=== PATIENT | female | born 1960 | race Caucasian/White ===

== ENCOUNTER → 2016-06-06 | Outpatient (REF) | payer BC ==
[2016-06-06 12:20] LABS: BLOOD UREA NITROGEN 19 MG/DL (7-18); CREATININE FOR GFR 0.95 MG/DL (0.55-1.02); GLOMERULAR FILTRATION RATE > 60.0 (>51)
== END ==
LOC: M LABDRAW1 11:27
PROVIDERS: ATTEND Physician Assistant
DX: M54.5 Low back pain (principal); M25.531 Pain in right wrist

== ENCOUNTER → 2016-07-28 | Outpatient (REF) | payer BC ==
[2016-07-28 14:18] LABS: PERCENT SATURATION 16.7 % (13.2-37.4)
== END ==
LOC: M LAB REF 13:33
PROVIDERS: ATTEND Internal Medicine
DX: D64.9 Anemia, unspecified (principal)

== ENCOUNTER 2017-03-29 08:19 | Outpatient (RCR) | payer OTHER | END 2017-04-12 | LOC: M PT 08:19 | DX: Z51.89 Encounter for other specified aftercare (principal); M51.36 Other intervertebral disc degeneration, lumbar region; M54.32 Sciatica, left side ==

== ENCOUNTER 2017-04-13 08:42 | Outpatient (RCR) | payer OTHER | END 2017-05-10 | LOC: M PT 04-17 07:45 | DX: Z51.89 Encounter for other specified aftercare (principal); M51.36 Other intervertebral disc degeneration, lumbar region; M54.32 Sciatica, left side | CPT/HCPCS: 97010 ==

== ENCOUNTER → 2017-04-27 | Outpatient (REF) | payer BC | LOC: M LAB REF 16:43 | DX: R31.9 Hematuria, unspecified (principal) | CPT/HCPCS: 87186 ==

== ENCOUNTER → 2017-05-17 | Outpatient (REF) | payer BC ==
[2017-05-17 15:06] LABS: INFLUENZA A AMPLIFICATION NEGATIVE (NEGATIVE); INFLUENZA B AMPLIFICATION POSITIVE (NEGATIVE)
== END ==
LOC: M LAB REF 14:02
DX: R05 Cough (principal)
CPT/HCPCS: 87502

== ENCOUNTER 2017-06-05 11:51 | Outpatient (RCR) | payer OTHER | END 2017-06-10 | LOC: M PT 11:51 | DX: Z51.89 Encounter for other specified aftercare (principal); M51.36 Other intervertebral disc degeneration, lumbar region; M54.32 Sciatica, left side ==

== ENCOUNTER 2017-06-12 06:59 | Outpatient (RCR) | payer OTHER | END 2017-07-10 | LOC: M PT 06:59 | DX: Z51.89 Encounter for other specified aftercare (principal); M51.36 Other intervertebral disc degeneration, lumbar region; M54.32 Sciatica, left side | CPT/HCPCS: 97010 ==

== ENCOUNTER 2017-06-29 13:48 | Emergency (ER) | payer BC, OTHER, SELFPAY ==
[2017-06-29] MEDS: ALBUTEROL SULFATE 2.5 MG/0.5 ML INH NEB SOLN NEB (14:49)
[2017-06-29] MEDS: IPRATROPIUM 0.5MG/ALBUTEROL 2.5MG INH SOL UD 3ML (DUONEB)(J7620) NEB (14:50)
[2017-06-29] MEDS: predniSONE 20 MG TAB PO (15:50)
== END 2017-06-29 15:54 | disposition home or self-care (01) ==
LOC: M ED 13:48
DX: J45.901 Unspecified asthma with (acute) exacerbation (principal); I10 Essential (primary) hypertension; Z79.899 Other long term (current) drug therapy; Z88.0 Allergy status to penicillin; Z88.1 Allergy status to other antibiotic agents; Z88.8 Allergy status to other drugs, medicaments and biological substances
CPT/HCPCS: 71046

== ENCOUNTER → 2018-01-26 | Outpatient (CLI) | payer BC | LOC: M RAD 07:17 | DX: K76.0 Fatty (change of) liver, not elsewhere classified (principal); N28.1 Cyst of kidney, acquired; K21.9 Gastro-esophageal reflux disease without esophagitis; R10.13 Epigastric pain | CPT/HCPCS: 76705 ==

== ENCOUNTER 2018-06-05 10:53 | Emergency (ER) | payer BC ==
[~2018-06-05] VITALS: Ht 162.6 cm; Wt 105.6 kg
[~2018-06-05 10:53] MED LIST: ALBU83IN INH; CITA20TA6; IPRA0.00 IN; MONT10TA2; PRED10TA2 PO; PRED20TA; VALS1TAB49
[2018-06-05] MEDS ORDERED: FLOV250A2 (11:02)
[2018-06-05] MEDS ORDERED: MOME50SP2 (11:02)
[2018-06-05] MEDS ORDERED: methylPREDNISolone INJ 125 MG/2 ML VIAL (J2930) IV ONE (12:30)
[2018-06-05] MEDS ORDERED: NS 500 ML IV ONE (12:30)
[2018-06-05] MEDS: IPRATROPIUM 0.5MG/ALBUTEROL 2.5MG INH SOL UD 3ML (DUONEB)(J7620) NEB PRN ×2 (12:33→13:14)
--- NOTE | 2018-06-05 12:43 | REP ---
Chest x-ray: Two views. History: Dyspnea and cough . Comparison study: June 29, 2017 . Findings: The lungs are well inflated and free of infiltrate. The pleural angles are sharp. The heart size is normal. Pulmonary vasculature is not increased. No significant bony abnormality is seen. Impression: Negative chest x-ray. Electronically Signed by Vinicio Brenner MD 06/05/2018 12:34 P
[2018-06-05 12:58] LABS: VENOUS BASE EXCESS 2.3 (-2.0-2.0); VENOUS HCO3 28.7 MEQ/L (23.0-27.0); VENOUS O2 SATURATION 64.9 % (60.0-80.0); VENOUS PARTIAL PRESSURE CO2 51.9 mmHg (38.0-50.0); VENOUS PARTIAL PRESSURE O2 36.8 mmHg (30.0-50.0); VENOUS PH 7.361 UNITS (7.330-7.430); VENOUS STANDARD HCO3 25.6 MEQ/L; VENOUS TOTAL CO2 30.3 MEQ/L (24.0-28.0)
[2018-06-05 13:04] LABS: HEMATOCRIT 43.4 % (36.0-47.0); HEMOGLOBIN 14.4 g/dl (12.0-15.5); MEAN CORPUSCULAR HEMOGLOBIN 30.1 pg (27.0-33.0); MEAN CORPUSCULAR HGB CONC 33.2 g/dl (32.0-36.5); MEAN CORPUSCULAR VOLUME 90.8 fl (80.0-96.0); NEUTROPHILS % 68.9 % (36.0-66.0); PLATELET COUNT, AUTOMATED 329 10^3/uL (150-450); RED BLOOD COUNT 4.78 10^6/uL (4.00-5.40); WHITE BLOOD COUNT 9.9 10^3/uL (4.0-10.0)
[2018-06-05 13:05] LABS: BASO # 0.1 10^3/uL (0.0-0.2); BASO % 0.6 % (0.0-1.0); EOS # 0.1 10^3/uL (0.0-0.50); EOS % 0.7 % (0.0-3.0); LYMPH # 2.2 10^3/uL (1.5-4.5); LYMPH % 22.5 % (24.0-44.0); MONO # 0.7 10^3/uL (0.0-0.8); MONO % 6.6 % (0.0-5.0); NEUTROPHILS # 6.8 10^3/uL (1.8-7.7)
[2018-06-05 13:15] LABS: CALCIUM LEVEL 9.4 MG/DL (8.5-10.1); CREATININE FOR GFR 1.02 MG/DL (0.55-1.30); GLOMERULAR FILTRATION RATE 59.7 (>51); INR 0.93; POTASSIUM SERUM 3.5 MEQ/L (3.5-5.1); PROTHROMBIN TIME 12.6 SECONDS (12.1-14.4)
[2018-06-05 13:17] LABS: D-DIMER QUANT 833.28 ng/ml (<500)
[2018-06-05 13:27] LABS: INFLUENZA A AMPLIFICATION NEGATIVE (NEGATIVE); INFLUENZA B AMPLIFICATION NEGATIVE (NEGATIVE)
[2018-06-05] MEDS ORDERED: ISOVUE-370 76% 125ML VIAL (Q9967 PER ML) As Ordered ONE (13:38)
--- NOTE | 2018-06-05 14:20 | REP ---
Clinical: Acute chest pain and shortness of breath . Technique: Axial contrast enhanced images from the thoracic inlet to the upper abdomen using 100 ml Isovue 370 intravenous contrast material with coronal and sagittal re-formations. Findings: Satisfactory enhancement of the pulmonary vasculature is achieved and no filling defects are identified to suggest pulmonary embolus. Thoracic aorta is normal caliber without aneurysm or dissection. Heart and pericardium are normal. Bilateral lung betancur are well aerated and clear without acute pulmonary parenchymal consolidation or atelectasis. No nodule or mass lesion. No pleural effusion/reaction. No pneumothorax. No adenopathy. Moderate hiatal hernia at the gastroesophageal junction noted. Impression: No evidence for pulmonary embolus. No acute pleuroparenchymal or mediastinal process. Moderate hiatal hernia. Electronically Signed by Faustino Etienne MD 06/05/2018 02:12 P
[2018-06-05] MEDS ORDERED: PRED20TA PO (14:38)
[2018-06-05 14:42] VITALS: BP 135/85
== END 2018-06-05 14:50 | disposition home or self-care (01) ==
LOC: M ED 10:53
DX: J45.901 Unspecified asthma with (acute) exacerbation (principal); K44.9 Diaphragmatic hernia without obstruction or gangrene; I10 Essential (primary) hypertension; Z88.0 Allergy status to penicillin; Z88.1 Allergy status to other antibiotic agents; Z79.899 Other long term (current) drug therapy; Z79.52 Long term (current) use of systemic steroids; Z79.51 Long term (current) use of inhaled steroids
CPT/HCPCS: 71046; 71275; 80048; 82803; 83605; 85025; 85379; 85610; 87040; 87502; 94640; 96374; 99284; J2930; Q9967

== ENCOUNTER 2019-02-14 09:56 | Emergency (ER) | payer BC ==
[~2019-02-14] VITALS: Ht 162.6 cm; Wt 106.1 kg
[~2019-02-14 09:56] MED LIST changes: +FLOV250A2; +MOME50SP2; +PRED20TA PO; -VALS1TAB49; +VALS40TA9
[2019-02-14] MEDS ORDERED: AZIT-12 (10:07)
[2019-02-14] MEDS ORDERED: LOSA50TA5 (10:07)
[2019-02-14] MEDS ORDERED: BENZ-18 (10:07)
[2019-02-14] MEDS ORDERED: PANT40TA3 (10:07)
[2019-02-14] MEDS ORDERED: CITA40TA4 (10:07)
[2019-02-14] MEDS: IPRATROPIUM 0.5MG/ALBUTEROL 2.5MG INH SOL UD 3ML (DUONEB)(J7620) NEB PRN ×2 (10:43→11:06)
[2019-02-14] MEDS ORDERED: methylPREDNISolone INJ 125 MG/2 ML VIAL (J2930) IV ONE (10:45)
[2019-02-14 10:57] LABS: BASO # 0.1 10^3/uL (0.0-0.2); BASO % 0.5 % (0.0-1.0); EOS # 0.1 10^3/uL (0.0-0.5); EOS % 0.5 % (0.0-3.0); HEMATOCRIT 41.6 % (36.0-47.0); HEMOGLOBIN 13.7 g/dl (12.0-15.5); LYMPH # 2.3 10^3/uL (1.5-5.0); MEAN CORPUSCULAR HEMOGLOBIN 30.4 pg (27.0-33.0); MEAN CORPUSCULAR HGB CONC 32.9 g/dl (32.0-36.5); MEAN CORPUSCULAR VOLUME 92.2 fl (80.0-96.0); MONO # 0.8 10^3/uL (0.0-0.8); MONO % 7.3 % (0.0-5.0); NEUTROPHILS # 7.6 10^3/uL (1.5-8.5); NEUTROPHILS % 70.1 % (36.0-66.0); PLATELET COUNT, AUTOMATED 359 10^3/uL (150-450); RED BLOOD COUNT 4.51 10^6/uL (4.00-5.40); WHITE BLOOD COUNT 10.9 10^3/uL (4.0-10.0)
--- NOTE | 2019-02-14 11:16 | REP ---
Clinical: Shortness of breath with wheezing and cough . Comparison: 06/05/2018 . Technique: PA and lateral. Findings: The mediastinum and cardiac silhouette are normal. The lung betancur are clear and without acute consolidation, effusion, or pneumothorax. The skeletal structures are intact and normal. Impression: 1. No acute cardiopulmonary process. Electronically Signed by Faustino Etienne MD 02/14/2019 11:07 A
[2019-02-14 11:21] LABS: BLOOD UREA NITROGEN 12 MG/DL (7-18); CALCIUM LEVEL 9.4 MG/DL (8.5-10.1); CARBON DIOXIDE LEVEL 33 MEQ/L (21-32); CHLORIDE LEVEL 102 MEQ/L (98-107); CREATININE FOR GFR 1.01 MG/DL (0.55-1.30); GLOMERULAR FILTRATION RATE > 60.0 (>51); GLUCOSE, FASTING 109 MG/DL (70-100); POTASSIUM SERUM 3.2 MEQ/L (3.5-5.1); SODIUM LEVEL 140 MEQ/L (136-145)
[2019-02-14 12:21] VITALS: BP 158/90
[2019-02-14] MEDS ORDERED: POTASSIUM CHLORIDE 10 MEQ SR TABLET PO ONE (12:30)
[2019-02-14] MEDS ORDERED: IPRA0.00 IN (12:36)
[2019-02-14] MEDS ORDERED: PRED20TA PO (12:39)
== END 2019-02-14 12:55 | disposition home or self-care (01) ==
LOC: M ED 09:56
DX: J45.901 Unspecified asthma with (acute) exacerbation (principal); J06.9 Acute upper respiratory infection, unspecified; E87.6 Hypokalemia; I10 Essential (primary) hypertension; K21.9 Gastro-esophageal reflux disease without esophagitis; Z79.51 Long term (current) use of inhaled steroids; Z79.52 Long term (current) use of systemic steroids; Z79.899 Other long term (current) drug therapy; Z88.0 Allergy status to penicillin; Z88.1 Allergy status to other antibiotic agents; Z88.8 Allergy status to other drugs, medicaments and biological substances
CPT/HCPCS: 36415; 71046; 80048; 85025; 94640; 96374; 99284; J2930

== ENCOUNTER 2019-02-27 12:10 | Emergency (ER) | payer BC ==
[~2019-02-27] VITALS: Ht 162.6 cm; Wt 110.1 kg
[~2019-02-27 12:10] MED LIST changes: +AZIT-12; +BENZ-18; +CITA40TA4; +LOSA50TA5; +PANT40TA3
[2019-02-27] MEDS ORDERED: predniSONE 20 MG TAB PO ONE (12:45)
[2019-02-27] MEDS ORDERED: ALBUTEROL SULFATE 2.5 MG/0.5 ML INH NEB SOLN INH PRN (12:45)
[2019-02-27 13:17] LABS: INFLUENZA A AMPLIFICATION NEGATIVE (NEGATIVE); INFLUENZA B AMPLIFICATION NEGATIVE (NEGATIVE)
[2019-02-27 14:09] VITALS: BP 125/75
== END 2019-02-27 14:17 | disposition home or self-care (01) ==
LOC: M ED 12:10
DX: J45.901 Unspecified asthma with (acute) exacerbation (principal); I10 Essential (primary) hypertension; Z79.51 Long term (current) use of inhaled steroids; Z79.899 Other long term (current) drug therapy; Z88.0 Allergy status to penicillin; Z88.8 Allergy status to other drugs, medicaments and biological substances

== ENCOUNTER → 2020-03-27 | Outpatient (CLI) | payer BC ==
[~2020-03-27] MED LIST changes: +MONT10TA10; -MONT10TA2; +PANT40TA29; -PANT40TA3
[2020-03-27 15:41] LABS: APPEARANCE, URINE CLEAR (CLEAR); BACTERIA, URINE AUTO NEGATIVE (NEGATIVE); BILIRUBIN, URINE AUTO NEGATIVE (NEGATIVE); BLOOD, URINE BLOOD 1+ (NEGATIVE); COLOR, URINE STRAW (YELLOW); GLUCOSE, URINE (UA) AUTO NEGATIVE (NEGATIVE); KETONE, URINE AUTO NEGATIVE (NEGATIVE); LEUKOCYTE ESTERASE, URINE AUTO TRACE (NEGATIVE); MUCUS, URINE SMALL (NEGATIVE); NITRITE, URINE AUTO NEGATIVE (NEGATIVE); PROTEIN, URINE AUTO NEGATIVE (NEGATIVE); RBC, URINE AUTO 1 /HPF (0-3); SPECIFIC GRAVITY URINE AUTO 1.003 (1.002-1.035); SQUAMOUS EPITHELIAL CELL UR AU 0 /HPF (0-6); UROBILINOGEN, URINE AUTO 0.2 mg/dL (0.0-2.0); WBC, URINE AUTO 2 /HPF (0-3)
[2020-03-27 16:12] LABS: CALCIUM LEVEL 9.4 MG/DL (8.5-10.1); CREATININE FOR GFR 1.02 MG/DL (0.55-1.30); GLOMERULAR FILTRATION RATE 59.3 (>51); POTASSIUM SERUM 3.9 MEQ/L (3.5-5.1)
== END ==
LOC: M LAB 13:22
PROVIDERS: ATTEND Urology
DX: R31.0 Gross hematuria (principal)

== ENCOUNTER → 2020-07-17 | Outpatient (CLI) | payer BC ==
--- NOTE | 2020-07-17 10:56 | REP ---
INDICATION: NODULE SEEN ON CT. COMPARISON: None. TECHNIQUE: Real-time sonographic evaluation of thyroid performed. FINDINGS: Right lobe measures 4.8 x 1.9 x 1.7 cm and left lobe 5.7 x 2.2 x 2.5 cm. In the mid right lobe there is a hypoechoic nodule which measures 4 x 3 x 6 mm. Just inferior to that in the right lobe there is a hypoechoic nodule which measures 1.1 x 0.8 x 1.1 cm. A hypoechoic nodule in the left upper pole measures 7 x 8 x 9 mm. In the mid left lobe there are 2 hypoechoic nodules. One measures 1.8 x 1.1 x 1.7 cm with multiple tiny internal echogenic foci. The other measures 1.9 x 1.7 x 1.5 cm and also contains multiple tiny echogenic foci. A solid heterogeneous nodule in the left lower pole measures 2.8 x 2.3 x 2.7 cm. This demonstrates a few tiny internal cystic areas and multiple tiny echogenic foci. IMPRESSION: Bilateral thyroid nodules as discussed above. According to TI-RADS criteria, the 3 solid nodules in the mid to lower left lobe are suspicious and ultrasound-guided FNA is recommended. <Electronically signed by Tate Goetz > 07/17/20 [id number]
== END ==
LOC: M RAD 09:43
PROVIDERS: ATTEND Internal Medicine
DX: E04.2 Nontoxic multinodular goiter (principal)

== ENCOUNTER → 2020-07-31 | Outpatient (REF) | payer BC | LOC: M LAB REF 17:18 | PROVIDERS: ATTEND Internal Medicine Endocrinology, Diabetes & Metabolism | DX: E04.2 Nontoxic multinodular goiter (principal) ==

== ENCOUNTER → 2020-12-05 | Outpatient (CLI) | payer BC ==
[~2020-12-05] MED LIST changes: +FLOV250A; -FLOV250A2
[2020-12-05 11:12] LABS: APPEARANCE, URINE CLEAR (CLEAR); BACTERIA, URINE AUTO NEGATIVE (NEGATIVE); BILIRUBIN, URINE AUTO NEGATIVE (NEGATIVE); BLOOD, URINE BLOOD 1+ (NEGATIVE); COLOR, URINE YELLOW (YELLOW); GLUCOSE, URINE (UA) AUTO NEGATIVE (NEGATIVE); KETONE, URINE AUTO NEGATIVE (NEGATIVE); LEUKOCYTE ESTERASE, URINE AUTO NEGATIVE (NEGATIVE); NITRITE, URINE AUTO NEGATIVE (NEGATIVE); PROTEIN, URINE AUTO NEGATIVE (NEGATIVE); RBC, URINE AUTO 4 /HPF (0-3); SPECIFIC GRAVITY URINE AUTO 1.009 (1.002-1.035); SQUAMOUS EPITHELIAL CELL UR AU 0 /HPF (0-6); UROBILINOGEN, URINE AUTO 0.2 mg/dL (0.0-2.0); WBC, URINE AUTO 0 /HPF (0-3)
== END ==
LOC: M LAB 10:39
PROVIDERS: ATTEND Urology
DX: R31.0 Gross hematuria (principal)

== ENCOUNTER → 2021-10-05 | Outpatient (CLI) | payer BC ==
[~2021-10-05] MED LIST changes: +ALBU2.5V10 INH; -ALBU83IN INH; +BARIUM SULFATE 700 MG TABLET (E-Z-DISK) As Ordered ONE; -CITA40TA4; +CITA40TA7; +E-Z-GAS II EFFERVESCENT PACKET (SODIUM BICARB./CITRIC ACID/SIMETHICONE) As Ordered ONE; +E-Z-HD 98% w/w 340GM SUSP BTL As Ordered ONE; +E-Z-PAQUE 96% w/w SUSP 176GM BTL As Ordered ONE; -MONT10TA10; +MONT10TA97
== END ==
LOC: M RAD 07:24
PROVIDERS: ATTEND Physician Assistant
DX: K21.9 Gastro-esophageal reflux disease without esophagitis (principal); K44.0 Diaphragmatic hernia with obstruction, without gangrene; R13.10 Dysphagia, unspecified

== ENCOUNTER → 2021-10-15 | Outpatient (CLI) | payer BC ==
[~2021-10-15] MED LIST changes: -BARIUM SULFATE 700 MG TABLET (E-Z-DISK) As Ordered ONE; -E-Z-GAS II EFFERVESCENT PACKET (SODIUM BICARB./CITRIC ACID/SIMETHICONE) As Ordered ONE; -E-Z-HD 98% w/w 340GM SUSP BTL As Ordered ONE; -E-Z-PAQUE 96% w/w SUSP 176GM BTL As Ordered ONE
== END ==
LOC: M EKG 15:58
PROVIDERS: ATTEND Orthopaedic Surgery Adult Reconstructive Orthopaedic Surgery
DX: Z01.818 Encounter for other preprocedural examination (principal); M25.561 Pain in right knee

== ENCOUNTER → 2021-12-01 | Outpatient (CLI) | payer BC | LOC: M WUC 10:25 | PROVIDERS: ATTEND Internal Medicine | DX: R05.9 Cough, unspecified (principal) ==